=== PATIENT | male | born 1945 | race African-American/Black ===

== ENCOUNTER → 2016-10-02 | Outpatient (CLI) | payer MEDICARE, OTHER ==
[~2016-10-02] VITALS: Ht 188 cm; Wt 129.2 kg
[~2016-10-02] MED LIST: AMLO-512 PO; ASPI81 PO; CLON.2 PO; DOXY100C PO; FURO40 PO; IBUP-1547 PO; METF500T4 PO; METH2.5T6 PO; PRED10 PO; VALS1TAB77 PO
[2016-10-02 10:01] VITALS: BP 156/79
== END | disposition home or self-care (01) ==
LOC: HBOWC 09:59
PROVIDERS: ATTEND Emergency Medicine
DX: E11.621 Type 2 diabetes mellitus with foot ulcer (principal); L97.521 Non-pressure chronic ulcer of other part of left foot limited to breakdown of skin; L97.511 Non-pressure chronic ulcer of other part of right foot limited to breakdown of skin; I87.2 Venous insufficiency (chronic) (peripheral); I89.0 Lymphedema, not elsewhere classified; E11.622 Type 2 diabetes mellitus with other skin ulcer; L97.821 Non-pressure chronic ulcer of other part of left lower leg limited to breakdown of skin; M06.9 Rheumatoid arthritis, unspecified; E11.22 Type 2 diabetes mellitus with diabetic chronic kidney disease; I12.9 Hypertensive chronic kidney disease with stage 1 through stage 4 chronic kidney disease, or unspecified chronic kidney disease; N18.9 Chronic kidney disease, unspecified; I25.10 Atherosclerotic heart disease of native coronary artery without angina pectoris; E87.6 Hypokalemia; E66.01 Morbid (severe) obesity due to excess calories; Z85.46 Personal history of malignant neoplasm of prostate
CPT/HCPCS: 87070; 87077; 87186; 87205; 97597; G0463